=== PATIENT | male | born 1955 | race Caucasian/White ===

== ENCOUNTER 2019-01-26 04:44 | Emergency (ER) | payer OTHER ==
[2019-01-26] MEDS ORDERED: Albuterol/Ipratropium NEB.SOL* Albuterol 2.5 MG/Ipratropium 0.5 MG 3 ML INH ONE ×2 (05:10→08:45)
[2019-01-26] MEDS ORDERED: NS 0.9% 1000 ML** 1,000 ML IV ONE (05:10)
--- NOTE | 2019-01-26 05:11 | ED ---
Shortness of Breath - HPI Summary HPI Summary: This pt is a 63 y/o male presenting to [facility] c/o difficulty breathing since 04: 00 today. Pt reports he has been having cold like symptoms since 2 days ago. This morning he woke up and felt SOB. Additionally notes he has been coughing. He reports he feels like he has an airway obstruction. He does not know if he has a fever. Denies any pain. Denies chest pain, abd pain, nausea, vomiting. His medications include Effexor and prostate medication. - History of Current Complaint Chief Complaint: EDShortnessOfBreath Time Seen by Provider: 01/26/19 04:54 Hx Obtained From: Patient Onset/Duration: Lasting Hours, Still Present Dyspnea At: Rest Associated Signs & Symptoms: Cough (Nonproductive) - Allergy/Home Medications Allergies/Adverse Reactions: Allergies Allergy/AdvReac Type Severity Reaction Status Date / Time No Known Allergies Allergy Verified 01/26/19 04:46 PMH/Surg Hx/FS Hx/Imm Hx Endocrine/Hematology History: Denies: Hx Diabetes Cardiovascular History: Denies: Hx Hypertension History: Reports: Hx Benign Prostatic Hyperplasia - Immunization History Date of Tetanus Vaccine: unk Date of Influenza Vaccine: none Infectious Disease History: No Infectious Disease History: Denies: Traveled Outside the [place] in Last 30 Days - Family History Known Family History: Positive: Diabetes - Social History Alcohol Use: Rare Substance Use Type: Reports: None Smoking Status (MU): Never Smoked Tobacco Review of Systems Negative: Fever ENT: Other - POSITIVE: cold symptoms Negative: Chest Pain Positive: Shortness Of Breath, Cough Negative: Abdominal Pain All Other Systems Reviewed And Are Negative: Yes Physical Exam - Summary Physical Exam Summary: VITAL SIGNS: Reviewed. GENERAL: Patient is a well-developed and nourished male who is lying comfortable in the stretcher. Patient is not in any acute respiratory distress. HEAD AND FACE: No signs of trauma. No ecchymosis, hematomas or skull depressions. No sinus tenderness. EYES: PERRLA, EOMI x 2, No injected conjunctiva, no nystagmus. EARS: Hearing grossly intact. Ear canals and tympanic membranes are within normal limits. MOUTH: Oropharynx within normal limits. NECK: Supple, trachea is midline, no adenopathy, no JVD, no carotid bruit, no c- spine tenderness, neck with full ROM. CHEST: Symmetric, no tenderness at palpation LUNGS: Clear to auscultation bilaterally. No wheezing or crackles. CVS: Regular rate and rhythm, S1 and S2 present, no murmurs or gallops appreciated. ABDOMEN: Soft, non-tender. No signs of distention. No rebound no guarding, and no masses palpated. Bowel sounds are normal. EXTREMITIES: FROM in all major joints, no edema, no cyanosis or clubbing. NEURO: Alert and oriented x 3. No acute neurological deficits. Speech is normal and follows commands. SKIN: Dry and warm Triage Information Reviewed: Yes Vital Signs On Initial Exam: Initial Vitals Temp Pulse Resp BP Pulse Ox 98.6 F 110 20 97/83 95 01/26/19 04:47 01/26/19 04:47 01/26/19 04:47 01/26/19 04:47 01/26/19 04:47 Vital Signs Reviewed: Yes Diagnostics - Vital Signs Vital Signs Temp Pulse Resp BP Pulse Ox 01/26/19 04:47 98.6 F 110 20 97/83 95 - Laboratory Result Diagrams: 01/26/19 05:18 01/26/19 05:18 Lab Statement: Any lab studies that have been ordered have been reviewed, and results considered in the medical decision making process. - Radiology Chest XR Radiology Interpretation Completed By: ED Physician Summary of Radiographic Findings: No acute process. Pending official radiology report. - EKG 04:55 Cardiac Rate: NL - at 91 bpm EKG Rhythm: Sinus Rhythm Summary of EKG Findings: Normal axis. Normal interval. No ischemic changes Re-Evaluation - Re-Evaluation First Eval Re-Evaluation Time: 08:35 Change: Unchanged Comment: Patient reports still having SOB and sore throat but denies CP. Upon physical exam performed during re-eval, patient's lungs are clear. Patient does not want any further treatment or testing. Therefore he will be discharged home with strong recommendation to follow-up with his PCP and cardiology. Course/Dx - Course Assessment/Plan: Pt is a 63 y/o male presenting to [facility] c/o difficulty breathing since 04:00 today. Pt reports he has been having cold like symptoms since 2 days ago. This morning he woke up and felt SOB. Additionally notes he has been coughing. He reports he feels like he has an airway obstruction. He does not know if he has a fever. Denies any pain. Lab work was obtained. In the ED course the pt was given IV fluids, duoneb. Chest XR is negative for an acute process. Pt will be signed out to Dr. Walls pending CTA chest. - Diagnoses Provider Diagnoses: URI (upper respiratory infection), Dyspnea Discharge - Sign-Out/Discharge Documenting (check all that apply): Sign-Out Patient Signing out patient TO: Jayson Walls Patient Received Moderate/Deep Sedation with Procedure: No - Discharge Plan Condition: Stable Disposition: HOME Prescriptions: Albuterol HFA INHALER* [Ventolin HFA Inhaler*] 2 puff INH TID #1 mdi Patient Education Materials: Upper Respiratory Infection (ED), Dyspnea (ED) Referrals: Gustabo Lucio MD [Primary Care Provider] - 3 Days Fran Corey MD [Medical Doctor] - 3 Days Additional Instructions: Follow up with your primary care provider and 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 RETURN TO THE ER FOR WORSENING OR CHANGING SYMPTOMS. - Billing Disposition and Condition Condition: STABLE Disposition: Home - Attestation Statements Document Initiated by Scribe: Yes Documenting Scribe: Kylee La Provider For Whom Scribe is Documenting (Include Credential): Delia You MD Scribe Attestation: Kylee Ortiz scribed for Delia You MD on 01/27/19 at 0506. Scribe Documentation Reviewed: Yes Provider Attestation: The documentation as recorded by the Kylee leonard accurately reflects the service I personally performed and the decisions made by Shashank chinchilla MD Status of Scribe Document: Viewed
[2019-01-26] MEDS: Albuterol 2.5 MG/3 ML NEB.SOL* (0.083%) INH SCH ×2 (05:40→05:54)
[2019-01-26 05:49] LABS: ABS Basophils 0.1 10^3/ul (0-0.2); ABS Eosinophils 0.4 10^3/ul (0-0.6); ABS Lymphocytes 1.9 10^3/ul (1.0-4.8); ABS Monocytes 1.1 10^3/ul (0-0.8); ABS Neutrophils 5.2 10^3/ul (1.5-7.7); Eosinophil % 4.8 %; Hematocrit 39 % (42-52); Hemoglobin 13.2 g/dL (14.0-18.0); Lymphocyte % 21.8 %; Mean Corpuscular HGB Conc 34 g/dL (31-36); Mean Corpuscular Hemoglobin 33 pg (27-31); Mean Corpuscular Volume 95 fL (80-94); Mean Platelet Volume 7.9 fL (7.4-10.4); Platelet Count 176 10^3/uL (150-450); Red Blood Count 4.04 10^6 /uL (4.18-5.48); Red Cell Distribution Width 13 % (10-15); White Blood Count 8.6 10^3/uL (3.5-10.8)
[2019-01-26 05:58] LABS: INR 1.03 (0.82-1.09)
[2019-01-26 06:11] LABS: Albumin/Globulin Ratio 1.5 (1-3); BUN/Creatinine Ratio 21.5 (8-20); C Reactive Protein 18.12 mg/L (<8.01); EGFR African American 99.3 (>60); EGFR Non-African American 82.1 (>60); Globulin 2.6 g/dL (2-4); Potassium 3.6 mmol/L (3.5-5.0); Total Bilirubin 0.6 mg/dL (0.2-1.0); Total Protein 6.6 g/dL (6.4-8.9)
[2019-01-26] MEDS ORDERED: Iohexol 350* (CONTRAST) 500 ML MDV IV ONE (06:40)
--- NOTE | 2019-01-26 07:32 | ED ---
Progress - Progress Note Progress Note: This patient is a sign-out from Dr. Delia You to Dr. Jayson Walls at shift change on 01/26/2019 at 0700 pending chest CTA. CTA chest interpreted by radiologist revealed: No definite pulmonary embolus is noted. Large hiatal hernia is noted. Hepatic cyst is present. Dr. Walls has reviewed this radiology report. Physical exam: Appearance: Well appearing, no pain distress Skin: warm, dry, reflects adequate perfusion Head/face: normal Eyes: EOMI, [place] ENT: normal Neck: supple, non-tender Respiratory: CTA, breath sounds present Cardiovascular: RRR, pulses symmetrical Abdomen: non-tender, soft Musculoskeletal: normal, strength/ROM intact Neuro: normal, sensory motor intact, A&Ox3 Re-Evaluation - Re-Evaluation First Eval Re-Evaluation Time: 08:35 Change: Unchanged Comment: Patient reports still having SOB and sore throat but denies CP. Upon physical exam performed during re-eval, patient's lungs are clear. Patient does not want any further treatment or testing. Therefore he will be discharged home with strong recommendation to follow-up with his PCP and cardiology. Course/Dx - Course Course Of Treatment: This patient is a sign-out from Dr. Delia You to Dr. Jayson Walls at shift change on 01/26/2019 at 0700 pending chest CTA. CTA chest revealed: No definite pulmonary embolus is noted. Large hiatal hernia is noted. Hepatic cyst is present. Upon re-eval, patient reports still feeling mildly SOB with a sore throat, but it is a little bit better than when he arrived. Patient denies any further testing, treatment, or lab work and he wants to go home. Therefore, the patient will be discharged with diagnosis of URI and dyspnea with strong recommendations to follow up with his PCP and cardiology for stress tests and to return to the ED for worsening/changing symptoms. Patient understands and agrees with this plan. - Diagnoses Provider Diagnoses: URI (upper respiratory infection), Dyspnea Discharge - Sign-Out/Discharge Documenting (check all that apply): Patient Departure - Discharge Patient Received Moderate/Deep Sedation with Procedure: No - Discharge Plan Condition: Stable Disposition: HOME Prescriptions: Albuterol HFA INHALER* [Ventolin HFA Inhaler*] 2 puff INH TID #1 mdi Patient Education Materials: Upper Respiratory Infection (ED), Dyspnea (ED) Referrals: Gustabo Lucio MD [Primary Care Provider] - 3 Days Fran Corey MD [Medical Doctor] - 3 Days Additional Instructions: Follow up with your primary care provider and a program coordinator executive education in three days. RETURN TO THE ER FOR WORSENING OR CHANGING SYMPTOMS. - Billing Disposition and Condition Condition: STABLE Disposition: Home - Attestation Statements Document Initiated by Scribe: Yes Documenting Scribe: Clifton Rodriguez Provider For Whom Trixie is Documenting (Include Credential): Jayson Walls MD Scribe Attestation: IClifton, scribed for Jayson Walls MD on 01/26/19 at 0914. Scribe Documentation Reviewed: Yes Provider Attestation: The documentation as recorded by the scribeClifton accurately reflects the service I personally performed and the decisions made by me, Jayson Walls MD Status of Scribe Document: Viewed
[2019-01-26] MEDS ORDERED: methylPREDNISolone 125 MG* 2 ML VIAL IV ONE (08:44)
[2019-01-26 09:10] VITALS: BP 97/58
== END 2019-01-26 09:35 | disposition home or self-care (01) ==
LOC: ED 04:44
DX: J06.9 Acute upper respiratory infection, unspecified (principal)
CPT/HCPCS: 36415; 71045; 71275; 80053; 83880; 85025; 85610; 85730; 86140; 93005; 96361; 96374; 99282; A9270-GY; Q9967